=== PATIENT | male | born 1980 | race Caucasian/White ===

== ENCOUNTER 2022-12-15 12:47 | Emergency (ER) | payer OTHER ==
[~2022-12-15] VITALS: Ht 154.9 cm; Wt 66.7 kg
== END 2022-12-15 16:42 | disposition home or self-care (01) ==
LOC: ER 12:47
DX: J22 Unspecified acute lower respiratory infection (principal); Q90.9 Down syndrome, unspecified; Z20.822 Contact with and (suspected) exposure to COVID-19